=== PATIENT | male | born 1975 | race African-American/Black ===

== ENCOUNTER 2016-06-23 11:43 | Emergency (ER) | payer MEDICAID, OTHER ==
[2016-06-23 11:55] VITALS: BP 155/84
--- NOTE | 2016-06-23 12:18 | ED ---
Lower Extremity - HPI Summary HPI Summary: 41 M presents with left knee pain for a week. He has a previous torn meniscus on his left side that he states he has never fixed. the pain is similar to the pain he has had in the past with the torn meniscus. He denies any recent injury to the area. He states that he has been moving more recently and that he prays on his knees 5 times a day. He has been using ibuprofen for the pain which has been helping. He has also been elevating the knee. He denies any history of gout or fever. He denies any numbness or tingling. - History of Current Complaint Chief Complaint: EDExtremityLower Stated Complaint: LEFT KNEE PAIN Time Seen by Provider: 06/23/16 12:01 Pain Intensity: 7 PMH/Surg Hx/FS Hx/Imm Hx Endocrine/Hematology History: Denies: Hx Diabetes Cardiovascular History: Denies: Hx Hypertension Infectious Disease History: No Infectious Disease History: Denies: Traveled Outside the [place] in Last 30 Days - Family History Known Family History: Negative: Cardiac Disease - Social History Alcohol Use: None Substance Use Type: Reports: None Smoking Status (MU): Never Smoked Tobacco Review of Systems Negative: Fever Negative: Chest Pain Negative: Shortness Of Breath Positive: Myalgia - left knee pain All Other Systems Reviewed And Are Negative: Yes Physical Exam Triage Information Reviewed: Yes Vital Signs On Initial Exam: Initial Vitals Temp Pulse Resp BP Pulse Ox 98.6 F 84 20 155/84 100 06/23/16 11:52 06/23/16 11:52 06/23/16 11:52 06/23/16 11:52 06/23/16 11:52 Vital Signs Reviewed: Yes Appearance: Positive: Well-Appearing Skin: Positive: Warm, Dry Head/Face: Positive: Normal Head/Face Inspection ENT: Positive: Normal ENT inspection, Pharynx normal, TMs normal Respiratory/Lung Sounds: Positive: Clear to Auscultation, Breath Sounds Present Cardiovascular: Positive: Normal, RRR Musculoskeletal: Positive: Other - neg ballotments, non tender patella, able to flex knee to 90, pos vikas of medial mensicus, neg anterior draw, tenderness over medial aspect of knee, good pulese Neurological: Positive: Sensory/Motor Intact, Reflexes Intact Diagnostics - Vital Signs Vital Signs Temp Pulse Resp BP Pulse Ox 06/23/16 11:52 98.6 F 84 20 155/84 100 - Laboratory Lab Statement: Any lab studies that have been ordered have been reviewed, and results considered in the medical decision making process. Lower Extremity Course/Dx - Course Course Of Treatment: 41 M presents with left knee pain. had mensical tear of medial left mensicus and right. right was repair but left was not, denies any new trauma, on exam full ROM with pain, pos mcmurrays of left medical meniscus, due to no trauma and iqugmiut rule do not need xray, has MRI on file many years ago for this tear, denies any knee is giving out on him and is able to get around at home, will have follow up with ortho and treat conservatively, patient agrees with plan. - Diagnoses Differential Diagnosis/HQI/PQRI: Positive: Fracture (Closed), Sprain, Strain, Other - meniscal tear Provider Diagnoses: Knee pain, left Discharge - Discharge Plan Condition: Good Disposition: HOME Patient Education Materials: Knee Pain (ED) Referrals: Alfonso Chang MD [Primary Care Provider] - Leandro Antunez MD [Medical Doctor] - Additional Instructions: Follow up with ortho Take Tylenol or ibuprofen every 6 hours as needed for pain Apply ice, rest, elevate Return to ED if develop numbness, tingling, inability to move joint, or any new or worsening symptoms
== END 2016-06-23 12:23 | disposition home or self-care (01) ==
LOC: ED 11:43
DX: M25.562 Pain in left knee (principal)
CPT/HCPCS: 99281

== ENCOUNTER 2016-11-13 21:17 | Emergency (ER) | payer MEDICAID ==
[2016-11-13 21:22] VITALS: BP 150/90
[2016-11-13] MEDS ORDERED: Indomethacin CAP* 25 MG CAP PO ONE (21:53)
--- NOTE | 2016-11-13 21:57 | ED ---
Christina Loredo Rebecca, scribed for Kaelyn Bettencourt MD on 11/13/16 at 2134 . Lower Extremity - HPI Summary HPI Summary: Pt is a 41 y/o M who presents to ED c/o L foot pain and swelling. Sx began gradually 2 days ago and has been constant since onset. Pain is discrete to the L foot without radiation. Sx are currently severe, ranked 8/10. Sx aggravated and alleviated by nothing. Denies any knee pain. Is able to ambulate. No recent trauma. No PMHx CA. No FHx gout. - History of Current Complaint Chief Complaint: EDExtremityLower Stated Complaint: LEFT FOOT PAIN Time Seen by Provider: 11/13/16 21:31 Hx Obtained From: Patient Onset of Pain: Days - 2 days ago Onset/Duration: Still Present Severity Currently: Severe Pain Intensity: 8 Pain Scale Used: 0-10 Numeric Timing: Constant Location: Is Discrete @ - L foot Associated Signs And Symptoms: Positive: Swelling Aggravating Factor(s): Nothing Alleviating Factor(s): Nothing - Allergies/Home Medications Allergies/Adverse Reactions: Allergies Allergy/AdvReac Type Severity Reaction Status Date / Time No Known Allergies Allergy Verified 11/13/16 21:19 PMH/Surg Hx/FS Hx/Imm Hx Endocrine/Hematology History: Denies: Hx Diabetes Cardiovascular History: Denies: Hx Hypertension, Hx Pacemaker/ICD History: Denies: Hx Renal Disease Sensory History: Denies: Hx Hearing Aid Psychiatric History: Denies: Hx Panic Disorder - Surgical History Surgery Procedure, Year, and Place: 2010 Lt KNEE - MMT Infectious Disease History: No Infectious Disease History: Denies: Traveled Outside the [place] in Last 30 Days - Family History Known Family History: Positive: Other - No FHx gout Negative: Cardiac Disease - Social History Alcohol Use: None Substance Use Type: Reports: None Smoking Status (MU): Never Smoked Tobacco Review of Systems Positive: Arthralgia - L foot pain; Denies L knee pain Positive: Other - L foot swelling All Other Systems Reviewed And Are Negative: Yes Physical Exam - Summary Physical Exam Summary: General: Well appearing, no pain distress Skin: Warm, Dry. Slight erythema over the R great toe at the MTP with no fluctuance or induration. Eyes: EOMI, CONNOR ENT: Pharynx normal, TMs normal Neck: Supple, nontender Respiratory: CTA, breath sounds present, no rhonchi, no wheezes, no rales Cardiovascular: RRR, no murmur, no rub, no gallop Abdomen: Soft, nontender, Non-distended, no guarding, no rebound Bowel: Present Musculoskeletal: ANY, No edema. Tenderness over the R great toe at the MTP with slight erythema. Neuro: Sensory/motor intact, A&Ox3, CN intact 2-12 Psych: Affect/mood appropriate Triage Information Reviewed: Yes Vital Signs On Initial Exam: Initial Vitals Temp Pulse Resp BP Pulse Ox 97.8 F 74 18 150/90 100 11/13/16 21:19 11/13/16 21:19 11/13/16 21:19 11/13/16 21:19 11/13/16 21:19 Vital Signs Reviewed: Yes Diagnostics - Vital Signs Vital Signs Temp Pulse Resp BP Pulse Ox 11/13/16 21:19 97.8 F 74 18 150/90 100 - Laboratory Lab Statement: Any lab studies that have been ordered have been reviewed, and results considered in the medical decision making process. Lower Extremity Course/Dx - Course Course Of Treatment: 41 yo male who reports left great toe pain for two days ( had an episode of the same a few months ago). he is fasting for Ramadan during the day now (no etoh) which I suggested may be a factor in causing this case of gout and suggested he will want to make sure he stays well hydrated. No fever, only slight erythema and no trauma - Diagnoses Provider Diagnoses: Gout attack Discharge - Discharge Plan Condition: Stable Disposition: HOME Prescriptions: Indomethacin CAP* [Indocin CAP*] 50 mg PO TID #28 cap Patient Education Materials: Gout (ED) Referrals: Alfonso Chang MD [Primary Care Provider] - 3 Days The documentation as recorded by the Christina noonan Rebecca accurately reflects the service I personally performed and the decisions made by me, Kaelyn Bettencourt MD.
== END 2016-11-13 22:30 | disposition home or self-care (01) ==
LOC: ED 21:17
DX: M10.072 Idiopathic gout, left ankle and foot (principal)
CPT/HCPCS: 99281; A9270-GY

== ENCOUNTER 2017-11-11 00:24 | Emergency (ER) | payer OTHER ==
[2017-11-11] MEDS ORDERED: traMADol TAB* 50 MG PO ONE (00:53)
[2017-11-11] MEDS ORDERED: Ibuprofen TAB* 800 MG PO ONE (00:53)
[2017-11-11 02:10] VITALS: BP 134/93
--- NOTE | 2017-11-11 07:46 | RAD ---
HISTORY: knee pain COMPARISONS: July 03, 2016 VIEWS: 2, Frontal and lateral views of the left knee FINDINGS: BONE DENSITY: Normal. BONES: There is no displaced fracture. JOINTS: There is mild tricompartmental osteoarthritis. There is a small suprapatellar joint effusion. There is no appreciable lipohemarthrosis. ALIGNMENT: There is no dislocation. SOFT TISSUES: Unremarkable. OTHER FINDINGS: None. IMPRESSION: JOINT EFFUSION. NO ACUTE OSSEOUS INJURY. IF SYMPTOMS PERSIST, RECOMMEND REPEAT IMAGING.
--- NOTE | 2017-11-27 11:27 | ED ---
Grazyna Loredo Gabriel, scribed for Kevon Cordova MD on 11/11/17 at 0058 . Lower Extremity - HPI Summary HPI Summary: This patient is a 42 year old M presenting to [facility] accompanied by his partner with a chief complaint of right medial knee pain that has been persistent for 4 days. The patient rates the pain 8/10 in severity. Pt had simliar sx 3 months [address] Molina, received an MRI which showed a new tear in his meniscus. Hx meniscus repair. Patient denies injury - History of Current Complaint Chief Complaint: EDExtremityLower Stated Complaint: LT KNEE PAIN Time Seen by Provider: 11/11/17 00:36 Hx Obtained From: Patient Mechanism Of Injury: Other - none Onset/Duration: Weeks Severity Initially: Severe Severity Currently: Severe Pain Intensity: 8 Pain Scale Used: 0-10 Numeric Timing: Constant Location: Is Discrete @ - right knee Associated Signs And Symptoms: Positive: Swelling. Negative: Fever Able to Bear Weight: Yes - Allergies/Home Medications Allergies/Adverse Reactions: Allergies Allergy/AdvReac Type Severity Reaction Status Date / Time No Known Allergies Allergy Verified 11/11/17 00:29 PMH/Surg Hx/FS Hx/Imm Hx Endocrine/Hematology History: Denies: Hx Diabetes Cardiovascular History: Denies: Hx Auto Implanted Cardiovert Defib, Hx Hypertension, Hx Pacemaker/ICD Respiratory History: Denies: Hx Chronic Obstructive Pulmonary Disease (COPD) GI History: Denies: Hx Gastroesophageal Reflux Disease History: Denies: Hx Renal Disease Sensory History: Denies: Hx Hearing Aid Psychiatric History: Denies: Hx Panic Disorder - Surgical History Surgery Procedure, Year, and Place: 2010 Lt KNEE - MMT Infectious Disease History: No Infectious Disease History: Denies: Traveled Outside the [place] in Last 30 Days - Family History Known Family History: Positive: Other - No FHx gout Negative: Cardiac Disease - Social History Lives: With Family Alcohol Use: None Substance Use Type: Reports: None Smoking Status (MU): Never Smoked Tobacco Review of Systems Constitutional: Negative - trauma Negative: Fever Positive: Other - right knee pain All Other Systems Reviewed And Are Negative: Yes Physical Exam - Summary Physical Exam Summary: Appearance: Well-appearing, no distress, Well-nourished Skin: Warm, color reflects adequate perfusion Head: Normal Head/Face inspection Eyes: Conjunctiva clear ENT: Normal inspection Neck: Supple, no nodes, no JVD. Respiratory: Lungs clear, Normal breath sounds, no respiratory distress Cardio: RRR, No murmur, pulses normal, brisk capillary refill Abdomen: soft, nontender, no guarding, no rebound Bowel sounds: present Musculoskeletal: Strength Intact/ ROM intact. No calf tenderness. No edema. Knee tender along medial proximal tibia, negative anterior drawer sign, no swelling, no ecchymosis, normal ROM Neuro: Alert, muscle tone normal, facial symmetry, speech normal, sensory/motor intact Psychological: Normal Triage Information Reviewed: Yes Vital Signs On Initial Exam: Initial Vitals Temp Pulse Resp BP Pulse Ox 97.6 F 88 16 143/95 98 11/11/17 00:26 11/11/17 00:26 11/11/17 00:26 11/11/17 00:26 11/11/17 00:26 Vital Signs Reviewed: Yes Diagnostics - Vital Signs Vital Signs Temp Pulse Resp BP Pulse Ox 11/11/17 00:26 97.6 F 88 16 143/95 98 - Laboratory Lab Statement: Any lab studies that have been ordered have been reviewed, and results considered in the medical decision making process. Re-Evaluation - Re-Evaluation First Eval Re-Evaluation Time: 01:53 Change: Improved Comment: Pt's knee pain improved with po analgesia. pt symptoms most consistent with knee sprain/strain. plan for f/u with his Ortho for further evaluation. Lower Extremity Course/Dx - Diagnoses Differential Diagnosis/HQI/PQRI: Positive: Arthritis, Bursitis, Contusion, Dislocation, Sprain, Strain, Tendonitis Provider Diagnoses: Right knee sprain Discharge - Sign-Out/Discharge Documenting (check all that apply): Discharge/Admit/Transfer - Discharge Plan Condition: Improved Disposition: HOME Prescriptions: Ibuprofen TAB* [Motrin TAB* 800 MG] 800 mg PO Q6H PRN #15 tab PRN Reason: Pain traMADol TAB* [Ultram*] 50 mg PO Q6HR PRN #12 tab MDD 200 mg PRN Reason: Pain Patient Education Materials: Knee Sprain (ED) Referrals: Alfonso Chang MD [Primary Care Provider] - Ashleigh Molina MD [Medical Doctor] - 3 Days - Billing Disposition and Condition Condition: IMPROVED Disposition: Home The documentation as recorded by the scribe, Geronimo,Kye accurately reflects the service I personally performed and the decisions made by me, Kevon Cordova MD.
== END 2017-11-11 02:09 | disposition home or self-care (01) ==
LOC: ED 00:24
DX: S83.91XA Sprain of unspecified site of right knee, initial encounter (principal); M25.461 Effusion, right knee; X58.XXXA Exposure to other specified factors, initial encounter; Y92.9 Unspecified place or not applicable
CPT/HCPCS: 36415; 86703; 99282; A9270-GY